=== PATIENT | male | born 1965 | race Caucasian/White ===

== ENCOUNTER 2025-04-19 13:49 | Emergency (ER) | payer BC ==
[2025-04-19 14:04] LABS: BASOPHILS ABSOLUTE AUTO 0.06 K/uL (0.00-0.10); BASOPHILS PERCENT AUTO 1.1 % (0.1-1.3); EOSINOPHILS PERCENT AUTO 0.0 % (0.0-5.4); IMMATURE GRAN PERCENT AUTO 0.2 % (0.0-0.7); LYMPHOCYTES ABSOLUTE AUTO 0.78 K/uL (0.8-3.3); LYMPHOCYTES PERCENT AUTO 14.8 % (11.4-47.7); MONOCYTES ABSOLUTE AUTO 0.43 K/uL (0.20-0.90); MONOCYTES PERCENT AUTO 8.2 % (3.3-12.6); NEUTROPHILS ABSOLUTE AUTO 3.99 K/uL (1.0-7.6); NEUTROPHILS PERCENT AUTO 75.7 % (40.0-78.1); PLATELET COUNT,PLT 82 K/uL (130-375); RED BLOOD CELL COUNT 3.09 M/uL (4.14-5.76); WHITE BLOOD CELL COUNT,WBC 5.3 K/uL (3.2-11.0)
[2025-04-19 14:14] LABS: EOSINOPHILS ABSOLUTE AUTO 0.00 K/uL (0.00-0.40); IMMATURE GRAN ABSOLUTE AUTO 0.01 K/uL (0.00-0.23)
[2025-04-19 14:24] LABS: A/G RATIO 0.4 (1.2-2.2); ALANINE AMINOTRANSFERASE,ALT 48 U/L (12-78); ASPARTATE AMNIOTRANSFERASE,AST 130 U/L (15-37); BILIRUBIN TOTAL 1.7 mg/dL (0.2-1.0); BLOOD UREA NITROGEN,BUN 16 mg/dL (7-18); CARBON DIOXIDE,CO2 27 mmol/L (21-32); CHLORIDE,CL 103 mmol/L (100-108); CREATININE 0.6 mg/dL (0.8-1.3); EST CRCL DRUG DOSING (CG) 119.07 mL/min; ESTIMATED GFR 111 mL/min (>60); GLUCOSE RANDOM 113 mg/dL (74-106); POTASSIUM,K 4.3 mmol/L (3.6-5.2); PROTEIN TOTAL,TP 8.3 g/dL (6.4-8.2); SODIUM,NA 140 mmol/L (140-148)
[2025-04-19 16:16] LABS: INR 1.6
[2025-04-19] MEDS: Octreotide 500 MCG in Sodium Chloride 0.9% 497.5 ML IV SCH (16:44)
[2025-04-19] MEDS: Iopamidol 612 MG/ML 100 ML Bottle IV ONE (17:08)
[2025-04-19] MEDS: Sodium Chloride 0.9% 10 ML Syringe FLUSH ONE (17:10)
[2025-04-19] MEDS: LORazepam 2 MG/ML SDV IVPUSH ONE (18:09)
== END 2025-04-19 18:11 ==
LOC: JP.ED 13:49
DX: K92.2 Gastrointestinal hemorrhage, unspecified (principal)
CPT/HCPCS: 36415; 71260; 74177; 80053; 80307; 85018; 85025; 85610; 86850; 86900; 86901; 96361; 96365; 96368; 96375; 99284; 99285; J2060; J2354; J2470; J3430; J7030; J7040; Q9967